=== PATIENT | male | born 1990 | race Caucasian/White ===

== ENCOUNTER 2022-04-30 12:42 | Emergency (ER) | payer OTHER ==
[~2022-04-30] VITALS: Ht 187.9 cm; Wt 106.5 kg
[~2022-04-30 12:42] MED LIST: AMOX500C2 PO; CEPH-507 PO; HYDR1TAB PO; TRM50T PO
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
[2022-04-30] MEDS ORDERED: NAPR-915 PO (14:41)
[2022-04-30] MEDS ORDERED: CYCL10TA25 PO (14:41)
[2022-04-30 14:50] VITALS: BP 131/84
== END 2022-04-30 14:52 | disposition home or self-care (01) ==
LOC: EDUNIT# 12:42 → ER 12:44
DX: S16.1XXA Strain of muscle, fascia and tendon at neck level, initial encounter (principal); M54.50 Low back pain, unspecified; V49.40XA Driver injured in collision with unspecified motor vehicles in traffic accident, initial encounter; Y92.410 Unspecified street and highway as the place of occurrence of the external cause
CPT/HCPCS: 70450; 72125; 72131

== ENCOUNTER → 2022-07-09 | Outpatient (RCR) | payer OTHER ==
[~2022-07-09] MED LIST changes: +CYCL10TA25 PO; +NAPR-915 PO
== END | disposition home or self-care (01) ==
PROVIDERS: ATTEND Psychiatry & Neurology Neurology
DX: S06.0X0D Concussion without loss of consciousness, subsequent encounter (principal); X58.XXXD Exposure to other specified factors, subsequent encounter

== ENCOUNTER 2022-08-07 10:21 | Outpatient (RCR) | payer OTHER | END 2022-08-08 | disposition home or self-care (01) | PROVIDERS: ATTEND Psychiatry & Neurology Neurology | DX: S06.0X0D Concussion without loss of consciousness, subsequent encounter (principal); M54.50 Low back pain, unspecified; M25.551 Pain in right hip; V89.2XXA Person injured in unspecified motor-vehicle accident, traffic, initial encounter ==

== ENCOUNTER 2022-09-02 08:19 | Outpatient (RCR) | payer OTHER | END 2022-09-08 | disposition home or self-care (01) | PROVIDERS: ATTEND Psychiatry & Neurology Neurology | DX: S06.0X0D Concussion without loss of consciousness, subsequent encounter (principal); X58.XXXA Exposure to other specified factors, initial encounter ==

== ENCOUNTER 2022-10-07 08:00 | Outpatient (RCR) | payer OTHER | END 2022-10-08 | disposition home or self-care (01) | PROVIDERS: ATTEND Psychiatry & Neurology Neurology | DX: S06.0X0D Concussion without loss of consciousness, subsequent encounter (principal); M54.50 Low back pain, unspecified; M25.551 Pain in right hip; V89.2XXD Person injured in unspecified motor-vehicle accident, traffic, subsequent encounter ==

== ENCOUNTER 2022-10-28 08:00 | Outpatient (RCR) | payer OTHER | END 2022-11-08 | disposition home or self-care (01) | PROVIDERS: ATTEND Psychiatry & Neurology Neurology | DX: S06.0X0D Concussion without loss of consciousness, subsequent encounter (principal); M54.50 Low back pain, unspecified; M25.551 Pain in right hip; V89.2XXD Person injured in unspecified motor-vehicle accident, traffic, subsequent encounter ==

== ENCOUNTER 2022-12-04 09:32 | Outpatient (RCR) | payer OTHER | END 2022-12-09 | disposition home or self-care (01) | PROVIDERS: ATTEND Psychiatry & Neurology Neurology | DX: S06.0X0D Concussion without loss of consciousness, subsequent encounter (principal); R41.3 Other amnesia; X58.XXXD Exposure to other specified factors, subsequent encounter ==